=== PATIENT | female | born 1975 ===

== ENCOUNTER 2017-10-17 08:30 | Outpatient (CLI) | payer OTHER | END 2017-10-17 17:00 | disposition home or self-care (01) | LOC: MAMO-SONO 08:30 | DX: N60.11 Diffuse cystic mastopathy of right breast (principal); N60.12 Diffuse cystic mastopathy of left breast; Z12.31 Encounter for screening mammogram for malignant neoplasm of breast ==

== ENCOUNTER 2018-12-01 10:47 | Outpatient (CLI) | payer OTHER | END 2018-12-01 10:51 | disposition home or self-care (01) | LOC: MAMO-SONO 10:47 | DX: N64.4 Mastodynia (principal); Z12.31 Encounter for screening mammogram for malignant neoplasm of breast; N60.11 Diffuse cystic mastopathy of right breast; N63.10 Unspecified lump in the right breast, unspecified quadrant; N63.20 Unspecified lump in the left breast, unspecified quadrant ==

== ENCOUNTER 2022-01-22 09:20 | Outpatient (CLI) | payer OTHER | END 2022-01-22 09:35 | disposition home or self-care (01) | LOC: SONOGRAMA 09:20 | PROVIDERS: ATTEND Obstetrics & Gynecology Maternal & Fetal Medicine | DX: N84.0 Polyp of corpus uteri (principal) ==

== ENCOUNTER 2025-06-30 06:00 | Day surgery (SDC) | payer OTHER ==
[2025-06-23 09:34] LABS: BASO % 0.9 % (0.1-1.2); EOS # 0.07 (0.04-0.54); EOS % 1.0 % (0.7-7.0); LYMPH # 2.69 (1.18-3.74); LYMPH % 38.4 % (19.3-53.1); MEAN PLATELET VOLUME 9.90 fl (9.4-12.4); MONO # 0.46 (0.24-0.82); MONO % 6.6 % (4.7-12.5); NEUT # 3.70 (1.56-6.13); NEUT % 52.8 % (34.0-71.1); RED CELL DISTRIBUTION WIDTH 12.0 % (11.6-14.4)
[2025-06-23 09:49] VITALS: BP 98/70
[2025-06-23 10:02] LABS: INR 0.99
[2025-06-23 10:39] LABS: ALT/SGPT 31.0 U/L (12-78); AST/SGOT 21.0 U/L (15-37); BILIRUBIN TOTAL 0.36 mg/dL (0.3-1.2); BUN CREA RATIO 25.0 (7.0-25.0); CREATININE SERUM 0.69 mg/dL (0.55-1.02); GFR 90.43; GLOBULINA 3.4 G/DL (2.4-3.5); GLUCOSE FASTING 96.0 mg/dL (65-100); OSMOLALITY SERUM 285.0 MOSM/KG (275-295)
[~2025-06-30] VITALS: Ht 162.6 cm; Wt 53.1 kg
[~2025-06-30 06:00] MED LIST: LIPITOR20 MG PO
[2025-06-30] MEDS ORDERED: POVIDONE-IODINE 118 ML BOTT TOP ONE (07:11)
== END 2025-06-30 13:25 | disposition home or self-care (01) ==
LOC: CIR.AMB 06:00
PROVIDERS: ATTEND Obstetrics & Gynecology Maternal & Fetal Medicine
DX: N84.0 Polyp of corpus uteri (principal); Z91.018 Allergy to other foods